=== PATIENT | female | born 1995 | race American Indian/Alaskan Native ===

== ENCOUNTER 2019-03-27 21:16 | Emergency (ER) | payer OTHER ==
--- NOTE | 2019-03-27 22:19 | Event Note ---
ED Screening Note Date of service: 03/27/19 (n) Time: 22:18 ED Screening Note: 23 y o female presents with aching pain and boil to left buttocks x 3 days states getting bigger This initial assessment/diagnostic orders/clinical plan/treatment(s) is/are subject to change based on patients health status, clinical progression and re- assessment by fellow clinical providers in the ED. Further treatment and workup at subsequent clinical providers discretion. Patient/guardian urged not to elope from the ED as their condition may be serious if not clinically assessed and managed. Initial orders include:
[2019-03-28] MEDS ORDERED: CLEOCIN PO ONE (00:29)
[2019-03-28] MEDS ORDERED: NORCO 5/325 PO ONE (00:29)
[2019-03-28] MEDS ORDERED: ZOFRAN ODT PO ONE (00:29)
[2019-03-28] MEDS ORDERED: IBUPROFEN PO ONE (00:29)
--- NOTE | 2019-03-28 00:59 | Emergency Department Report ---
Abscess Boil HPI - HPI Chief Complaint: Skin/Abscess/Foreign Body Stated Complaint: BOIL Time Seen by Provider: 03/27/19 22:18 Duration: 3 Days Location: Other (Left gluteus) Severity: Severe History: Yes Pain, No Fever, No Purulent Drainage, No Numbness, No Foreign Body, No Previous History, No Insect Bite HPI: Patient is a 23-year-old -[place] female with no past medical history who presents to the ED with c/o acute onset persistent painful swollen erythematous nonfluctuant maculopapular rash on the left gluteal cleft for the last 3 days. Patient denies fever, chills, nausea, vomiting, dizziness, headache, chest pain, shortness of breath, numbness and tingling of left leg or back pain. Home Medications: Previous Rx's Medication Instructions Recorded Last Taken Type Acetaminophen/Codeine [Tylenol 1 tab PO Q6H PRN #15 tab 03/28/19 Unknown Rx /Codeine # 3 tab] Clindamycin [Clindamycin CAP] 300 mg PO Q8HR #60 capsule 03/28/19 Unknown Rx Ibuprofen [Motrin] 600 mg PO Q8H PRN #20 tablet 03/28/19 Unknown Rx Ondansetron [Zofran Odt] 4 mg PO Q6H PRN #15 tab.rapdis 03/28/19 Unknown Rx Sulfamethoxazole/Trimethoprim 1 each PO BID #20 tablet 03/28/19 Unknown Rx [Bactrim DS TAB] Allergies/Adverse Reactions: Allergies Allergy/AdvReac Type Severity Reaction Status Date / Time No Known Allergies Allergy Verified 03/27/19 21:19 ED Review of Systems ROS: Stated complaint: BOIL Other details as noted in HPI Constitutional: denies: chills, fever Eyes: denies: eye pain, eye discharge, vision change ENT: denies: ear pain, throat pain Respiratory: denies: cough, shortness of breath, wheezing Cardiovascular: denies: chest pain, palpitations Endocrine: no symptoms reported Gastrointestinal: denies: abdominal pain, nausea, diarrhea Genitourinary: denies: urgency, dysuria, discharge Musculoskeletal: denies: back pain, joint swelling, arthralgia Skin: rash (swollen erythematous rash on left gluteal cleft), change in color. denies: lesions Neurological: denies: headache, weakness, paresthesias Psychiatric: denies: anxiety, depression Hematological/Lymphatic: denies: easy bleeding, easy bruising ED Past Medical Hx - Past Medical History Previous Medical History?: No - Surgical History Past Surgical History?: No - Social History Smoking Status: Current Every Day Smoker Substance Use Type: Alcohol, Marijuana - Medications Home Medications: Home Medications Medication Instructions Recorded Confirmed Last Taken Type Acetaminophen/Codeine [Tylenol 1 tab PO Q6H PRN #15 tab 03/28/19 Unknown Rx /Codeine # 3 tab] Clindamycin [Clindamycin CAP] 300 mg PO Q8HR #60 capsule 03/28/19 Unknown Rx Ibuprofen [Motrin] 600 mg PO Q8H PRN #20 tablet 03/28/19 Unknown Rx Ondansetron [Zofran Odt] 4 mg PO Q6H PRN #15 tab.rapdis 03/28/19 Unknown Rx Sulfamethoxazole/Trimethoprim 1 each PO BID #20 tablet 03/28/19 Unknown Rx [Bactrim DS TAB] ED Abscess Boil Physical Exam - Exam General: Vital signs noted. No distress. Alert and acting appropriately. Size: 2 cm Exam: Yes Tenderness, Yes Surrounding Cellulites/Erythema, Yes Normal Neurologic Exam, Yes Normal Circulation, No Fluctuance, No Lymphangitis, No Crepitation, No Heart Murmur Exam: Physical exam unremarkable except for swollen tender erythematous maculopapular nonfluctuant rash on left gluteal cleft ED Course Vital Signs 03/27/19 22:18 Temperature 98.2 F Pulse Rate 94 H Respiratory 16 Rate Blood Pressure 118/58 O2 Sat by Pulse 96 Oximetry - Reevaluation(s) Reevaluation #1: 03/28/19 00:59 Patient is alert and oriented 3 and is not in distress with normal vital signs. The patient was treated for pain in the ED and given initial oral antibiotics in the ED, and discharged home on pain medications and antibiotics. Patient advised to return to the ED immediately if symptoms get worse. Patient was otherwise advised to follow-up with her primary care physician in 7-10 days for reevaluation. Critical care attestation.: If time is entered above; I have spent that time in minutes in the direct care of this critically ill patient, excluding procedure time. ED Medical Decision Making - Medical Decision Making Patient is alert and oriented 3 and is not in distress with normal vital signs. The patient was treated for pain in the ED and given initial oral antibiotics in the ED, and discharged home on pain medications and antibiotics. Patient advised to return to the ED immediately if symptoms get worse. Patient was otherwise advised to follow-up with her primary care physician in 7-10 days for reevaluation. - Differential Diagnosis cellulitis of left buttock; abscess of left buttocks, insect bite ED Disposition Clinical Impression: Cellulitis of left external cheek, Cutaneous abscess of buttock Disposition: TO HOME OR SELFCARE Is pt being admited?: No Does the pt Need Aspirin: No Condition: Stable Instructions: Cellulitis (ED), Abscess (ED) Additional Instructions: Take medications with food, drink plenty of fluids and follow up with your Primary Care Physician in 7-10 days for further reevaluation. Return to the ED immediately if symptoms get worse. Prescriptions: Sulfamethoxazole/Trimethoprim [Bactrim DS TAB] 1 each PO BID #20 tablet Clindamycin [Clindamycin CAP] 300 mg PO Q8HR #60 capsule Ibuprofen [Motrin] 600 mg PO Q8H PRN #20 tablet PRN Reason: Pain Acetaminophen/Codeine [Tylenol /Codeine # 3 tab] 1 tab PO Q6H PRN #15 tab PRN Reason: Pain , Severe (7-10) Ondansetron [Zofran Odt] 4 mg PO Q6H PRN #15 tab.rapdis PRN Reason: Nausea Referrals: GABRIEEL LEE MD [Primary Care Provider] - 3-5 Days Time of Disposition: :02 Print Language: STATELESS
[2019-03-28 01:22] VITALS: BP 111/68
== END 2019-03-28 01:21 | disposition home or self-care (01) ==
LOC: ED 21:16
DX: L03.211 Cellulitis of face (principal); L03.317 Cellulitis of buttock
CPT/HCPCS: 99282; Q0162